=== PATIENT | female | born 1975 | race Caucasian/White ===

== ENCOUNTER 2017-04-30 17:02 | Observation (INO) | END 2017-05-02 18:35 | disposition home or self-care (01) ==

== ENCOUNTER → 2018-10-17 | Emergency (ER) | payer OTHER ==
[~2018-10-17] VITALS: Ht 165.1 cm; Wt 91.1 kg
[~2018-10-17] MED LIST: ASCO-285 PO; DOCU-144 PO; ERGO500013 ORAL; FER325 PO; HYDROmorphONE 1 MG/ML SYG IV STA; IBUP-1542 PO; METF500T24 ORAL; ONDA4TAB14 PO; ONDANSETRON 4 MG INJ IV STA; SOD CHLORIDE 0.9% 1,000 ML IV STA
[2018-10-17 16:37] VITALS: Ht 165.1 cm; Wt 91.1 kg
[2018-10-18 01:03] VITALS: BP 103/64; PULSE 70; RESP 20
== END | disposition home or self-care (01) ==
LOC: E/R 16:30
DX: D64.9 Anemia, unspecified (principal); E11.9 Type 2 diabetes mellitus without complications; R11.2 Nausea with vomiting, unspecified; Z79.84 Long term (current) use of oral hypoglycemic drugs
CPT/HCPCS: 36415; 74176; 76705; 80053; 81001; 83690; 84703; 85025; 96374; 96375; J1170; J2405; J7030; Z7502